=== PATIENT | female | born 1995 | race Caucasian/White ===

== ENCOUNTER → 2019-02-14 | Outpatient (CLI) | payer BC ==
--- NOTE | 2019-02-15 07:17 | US ---
EXAMINATION TYPE: US thyroid st tissue head/neck DATE OF EXAM: 02/14/2019 COMPARISON: NONE CLINICAL HISTORY: E05.90 THYROTOXICOSIS. GLAND SIZE: Right Lobe: 5.3 x 1.1 x 1.4 cm Overall Parenchyma: homogenous Left Lobe: 4.5 x 1.3 x 1.5 cm Overall Parenchyma: homogeneous Isthmus Thickness: 0.8 cm NODULES RIGHT: # of nodules measured on right: 0 LEFT: # of nodules measured on left: 0 ISTHMUS: # of nodules measured in the isthmus: 0 Bilateral neck scanned, no evidence of lymphadenopathy. Right thyroid lobe enlarged IMPRESSION: Mildly enlarged thyroid gland without discrete nodule.
== END | disposition home or self-care (01) ==
LOC: RADUSWWP 15:34
PROVIDERS: ATTEND Family Medicine
DX: E04.9 Nontoxic goiter, unspecified (principal); E05.90 Thyrotoxicosis, unspecified without thyrotoxic crisis or storm
CPT/HCPCS: 76536

== ENCOUNTER → 2019-05-19 | Outpatient (CLI) | payer BC ==
--- NOTE | 2019-05-19 15:08 | CT ---
EXAMINATION TYPE: CT sinus wo con DATE OF EXAM: 05/19/2019 COMPARISON: NONE HISTORY: Chronic sinusitis CT DLP: 603 mGycm. Automated Exposure Control for Dose Reduction was Utilized. TECHNIQUE: CT scan of the sinuses is performed without contrast, axial images are obtained, coronal r eformatted images are also reviewed. FINDINGS: There is mucoperiosteal thickening of the left maxillary sinus indicative of chronic paranasal sinus disease. Trace mucosal thickening is also seen circumferentially within the inferior right maxillary sinus. Antrostomy defects are seen from prior surgical augmentation of the ostiomeatal complexes. The re is left middle and inferior nasal turbinate mucosal hypertrophy. The nasal septum remains midline. Moderate mucosal thickening is also seen within the ethmoid sinuses. Frontal sinuses and frontal rec esses are patent. Visualized mastoid air cells are well aerated. Incidentally noted cerumen is seen w ithin the left external auditory canal and to a lesser degree within the right external auditory teo l. Sphenoid sinuses appear to contain minimal internal debris. The left ostiomeatal complex is occluded although surgically augmented. Bridging mucosal thickening i s seen on the left. Right is patent. No Ruth Ann cells or itzel bullosa are seen. Nasal septum is over all midline. Maxillary spine and nasal septum as well as the nasal bone appear intact. Dental filling s creates spray artifact and partially limiting evaluation. There is limited evaluation of the intrac ranial structures given technique. IMPRESSION: 1. Severe left inferior nasal turbinate mucosal hypertrophy. 2. Occlusion of the left ostiomeatal complex despite augmentation as a coastal thickening bridges the surgical antrostomy defect. 3. Mucoperiosteal thickening indicative of chronic sinusitis in the left maxillary sinus. Overall mil d degree of paranasal sinus disease in the maxillary and ethmoid sinuses. Trace internal debris in th e sphenoid sinuses.
== END | disposition home or self-care (01) ==
LOC: RADCTMAIN 07:27
PROVIDERS: ATTEND Otolaryngology
DX: J32.0 Chronic maxillary sinusitis (principal)
CPT/HCPCS: 70486

== ENCOUNTER 2019-08-13 00:13 | Emergency (ER) | payer BC ==
[2019-08-13 00:21] VITALS: RESP 18
--- NOTE | 2019-08-13 01:27 | CT ---
EXAMINATION TYPE: CT brain ingrid wo con DATE OF EXAM: 08/13/2019 COMPARISON: None HISTORY: fall CT DLP: 1405.8 mGycm Automated exposure control for dose reduction was used. Multiple axial sections were obtained of the brain without contrast. Multiple axial sections were obt ained from the skull base to T1 vertebra without contrast. FINDINGS: Ventricles and sulci appear normal. There is no mass effect nor midline shift. There is no sign of in tracranial hemorrhage. There is moderate mucosal thickening in previous surgery noted at the maxillar y and ethmoid sinuses. Calvarium is intact. There is straightening of the cervical spine. Disc spaces are normal. Posterior elements are intact. Facet joints are intact. Skull base is intact. There is no evidence of cervical spine fracture. IMPRESSION: Negative CT scan of the brain. Sinusitis. Straightening of the cervical spine could be positional. No fracture. Normal disc spaces.
--- NOTE | 2019-08-13 01:33 | XR ---
EXAMINATION TYPE: XR knee 4V RT DATE OF EXAM: 08/13/2019 COMPARISON: NONE HISTORY: Knee pain TECHNIQUE: 4 views FINDINGS: I see no fracture nor dislocation. Joint spaces are normal. There is no sign of joint effus ion. IMPRESSION: Negative right knee exam.
--- NOTE | 2019-08-13 01:46 | ED ---
General Adult HPI - General Source: family, RN notes reviewed, old records reviewed Mode of arrival: wheelchair Limitations: no limitations <Antonio Holland - Last Filed: 08/13/19 01:43> <Rebecca Heck - Last Filed: 08/14/19 23:11> - General Chief complaint: Fall Stated complaint: etoh/fall-hit head Time Seen by Provider: 08/13/19 00:25 - History of Present Illness Initial comments: 24-year-old female patient for vaccinated no pertinent past history presents to ED for chief complaint of fall with EtOH. Patient was reportedly drinking alcohol with friends and family when she was walking into an establishment she stumbled, fell forward and hit her right front tooth and then the side of her face on the concrete ground. No loss of consciousness. Patient did break her to and had an episode of nausea and vomiting shortly after. Mother reports that while patient was in the car she was saying things that did not make sense. Patient also slept for portion of the drive to the hospital. Upon arrival to Hospital mother reports the patient seems to be acting at baseline. Patient complains of pain and right knee. Denies any chance of being . Denies any other complaints. Systemic: Pt denies fatigue, fever/chills, rash. Pt denies weakness, night sweats, weight loss. Neuro: Pt denies headache, visual disturbances, syncope or pre-syncope. HEENT: Pt denies ocular discharge or irritation, otalgia, rhinorrhea, pharyngitis or notable lymphadenopathy. Cardiopulmonary: Pt denies chest pain, SOB, heart palpitations, dyspnea on exertion. Abdominal/GI: Pt denies abdominal pain, n/v/d. : Pt denies dysuria, burning w/ urination, frequency/urgency. Denies new onset urinary or bowel incontinence. MSK: Pt denies myalgia, loss of strength or function in extremities. Neuro: Pt denies new onset weakness, paresthesias. (Antonio Holland) - Related Data Previous Rx's Medication Instructions Recorded Amoxicillin/Potassium Clav 1 each PO Q12HR 7 Days #14 tab 08/13/19 [Augmentin 875-125 Tablet] Allergies Allergy/AdvReac Type Severity Reaction Status Date / Time Tetanus Vaccines and Toxoid AdvReac Confusion Verified 08/13/19 00:48 Review of Systems ROS Other: All systems not noted in ROS Statement are negative. <AmaliaTonAntonio J - Last Filed: 08/13/19 01:43> ROS Other: All systems not noted in ROS Statement are negative. <Rebecca Heck - Last Filed: 08/14/19 23:11> ROS Statement: Those systems with pertinent positive or pertinent negative responses have been documented in the HPI. Past Medical History Past Medical History: Asthma History of Any Multi-Drug Resistant Organisms: None Reported Additional Past Surgical History / Comment(s): nasal polyp removal. Past Psychological History: No Psychological Hx Reported Smoking Status: Never smoker Past Alcohol Use History: Occasional Past Drug Use History: Marijuana <Antonio Holland - Last Filed: 08/13/19 01:43> General Exam Limitations: no limitations <Antonio Holland - Last Filed: 08/13/19 01:43> - General Exam Comments Initial Comments: Constitutional: NAD, AOX3, Pt has pleasant affect. HEENT: NC/AT, trachea midline, neck supple, no lymphadenopathy. Posterior pharynx non erythematous, without exudates. External ears appear normal, without discharge. Mucous membranes moist. Eyes PERRLA, EOM intact. There is no scleral icterus. No pallor noted. Broken right front tooth noted. No other dental injury noted. Cardiopulmonary: RRR, no murmurs, rubs or gallops, no JVD noted. Lungs CTAB in anterior and posterior gamboa. No peripheral edema. Abdominal exam: Abdomen soft and non-distended. Abdomen non-tender to palpation in all 4 quadrants. Bowel sounds active in LLQ. No hepatosplenomegaly. No ecchymosis Neuro: CN II-XII intact. No nuchal rigidity. No raccon eyes, no traore sign, no hemotympanum. No cervical spinal tenderness. MSK: Abrasion noted to anterior aspect of right knee, full active range of motion. Small hematoma noted right frontal lobe. No posterior calf tenderness bilaterally, homans sign negative bilaterally. Posterior tibialis and radial pulse +2 bilaterally. Sensation intact in upper and lower extremities. Full active ROM in upper and lower extremities, 5/5 stregnth. (Antonio Holland) Course Vital Signs 08/13/19 08/13/19 00:16 02:09 Temperature 96.9 F L 98 F Pulse Rate 101 H 107 H Respiratory 18 18 Rate Blood Pressure 121/73 125/64 O2 Sat by Pulse 99 96 Oximetry Medical Decision Making <Antonio Holland - Last Filed: 08/13/19 01:43> <Rebecca Heck - Last Filed: 08/14/19 23:11> - Medical Decision Making 24 old female patient presents to ED for chief complaint of fall while drinking alcohol. Patient vital signs are stable, afebrile. Physical exam displayed small hematoma right frontal lobe, abrasion right knee, broken right front tooth. Patient allegedly exam is within normal limits. Repeat neurologic exam also within normal limits. Mom has other fragment of tooth. CT brain and C-spi ne displayed sinusitis, no other acute intracranial process. Plain film knee is negative. Patient declined tetanus updated. Patient will be discharged with Augmentin, will follow with dentist. Mother and father will watch over patient denied report they have safe place. Return precautions discussed. Case discussed with Dr. Ness. (Antonio Holland) Dictation sent to incorrect attending provider. (Rebecca Heck) - Lab Data Lab Results 08/13/19 Range/Units 00:34 Urine HCG, Qual Not Detected (Not Detectd) Disposition Is patient prescribed a controlled substance at d/c from ED?: No <Antonio Holland - Last Filed: 08/13/19 01:43> <Rebecca Heck - Last Filed: 08/14/19 23:11> Clinical Impression: Fall, Broken tooth, Sinusitis Disposition: HOME SELF-CARE Condition: Stable Instructions (If sedation given, give patient instructions): Sinusitis (ED), Acute Dental Trauma (ED), Fall Prevention (ED) Additional Instructions: Follow-up with primary care provider and dentist tomorrow. Take antibiotics as directed. Return to ER if condition worsens. Prescriptions: Amoxicillin/Potassium Clav [Augmentin 875-125 Tablet] 1 each PO Q12HR 7 Days #14 tab Referrals: Fortino Adame MD [Primary Care Provider] - 1-2 days Princess Uriarte DDS [STAFF PHYSICIAN] - 1-2 days Rodrigo Suarez DDS [STAFF PHYSICIAN] - 1-2 days Maria G Kearney DDS [STAFF PHYSICIAN] - 1-2 days
[2019-08-13 02:10] VITALS: BP 125/64; PULSE 107; TEMP 98
== END 2019-08-13 02:10 | disposition home or self-care (01) ==
LOC: EC 00:13
DX: S02.5XXA Fracture of tooth (traumatic), initial encounter for closed fracture (principal); J32.9 Chronic sinusitis, unspecified; S00.83XA Contusion of other part of head, initial encounter; S80.211A Abrasion, right knee, initial encounter; Z88.7 Allergy status to serum and vaccine; Z53.20 Procedure and treatment not carried out because of patient's decision for unspecified reasons; W01.0XXA Fall on same level from slipping, tripping and stumbling without subsequent striking against object, initial encounter; Y93.01 Activity, walking, marching and hiking; Y92.89 Other specified places as the place of occurrence of the external cause
CPT/HCPCS: 70450; 72125; 81025; 99284

== ENCOUNTER → 2022-01-13 | Outpatient (CLI) | payer OTHER ==
[2022-01-14 11:16] LABS: Aspergillus fumagatus IgE <0.10 kU/L; Birch IgE <0.10 kU/L; Cat Epith & Dander IgE 4.56 kU/L; Cladosporian herbarum IgE <0.10 kU/L; Dog Dander IgE 0.76 kU/L; Elm IgE <0.10 kU/L; Maple (Box Elder) IgE <0.10 kU/L; Oak IgE <0.10 kU/L; Ragweed,Common IgE <0.10 kU/L
[2022-01-14 12:09] LABS: Bermuda Grass IgE <0.10 kU/L (<0.10); Meadow Fescue IgE <0.10 kU/L (<0.10); Meadow Fescue IgE Class CLASS 0; Meadow Grs (KY blue) IgE <0.10 kU/L (<0.10); Meadow Grs (KY blue) IgE Class CLASS 0
[2022-01-14 12:10] LABS: Alt. alternata IgE Class CLASS 0; Alternaria alternata IgE <0.10 kU/L (<0.10); Cottonwood IgE <0.10 kU/L (<0.10); Penicillium notatum IgE Class CLASS 0; Sycamore(Mpl.Lf) IgE <0.10 kU/L (<0.10); Sycamore(Mpl.Lf) IgE Class CLASS 0; Timothy Grass IgE <0.10 kU/L (<0.10); Timothy Grass IgE Class CLASS 0; Willow Tree IgE <0.10 kU/L (<0.10); Willow Tree IgE Class CLASS 0
[2022-01-14 12:11] LABS: Beech IgE <0.10 kU/L (<0.10); Beech IgE Class CLASS 0; English Plantain IgE Class CLASS 0; Goldenrod IgE <0.10 kU/L (<0.10); Goldenrod IgE Class CLASS 0; Lamb's Quarter IgE <0.10 kU/L (<0.10); Lamb's Quarter IgE Class CLASS 0; Ragweed, Giant IgE <0.10 kU/L (<0.10); Ragweed, Giant IgE Class CLASS 0; Sheep Sorrel IgE <0.10 kU/L (<0.10); Sheep Sorrel IgE Class CLASS 0
== END | disposition home or self-care (01) ==
LOC: LABWHC1 10:17
PROVIDERS: ATTEND Internal Medicine
DX: J30.9 Allergic rhinitis, unspecified (principal)
CPT/HCPCS: 36415; 86003

== ENCOUNTER → 2022-06-25 | Outpatient (CLI) | payer OTHER ==
[2022-06-25 18:21] LABS: Basophils # (A) 0.01 X 10*3/uL (0.00-0.10); Basophils % (A) 0.2 %; Eosinophils # (A) 0.52 X 10*3/uL (0.04-0.35); Eosinophils % (A) 8.6 %; HCT 36.9 % (37.2-46.3); HGB 12.1 g/dL (12.0-15.0); Immature Grans, Automated 0.2 %; Lymphocytes # (A) 2.89 X 10*3/uL (0.90-5.00); Lymphocytes % (A) 47.8 %; MCH 26.3 pg (27.0-32.0); MCHC 32.8 g/dL (32.0-37.0); MCV 80.2 fL (80.0-97.0); Monocytes # (A) 0.34 X 10*3/uL (0.20-1.00); Monocytes % (A) 5.6 %; NRBC Per 100 WBC 0 /100 WBCS (0.0-0.0); Neutrophils # (A) 2.27 X 10*3/uL (1.80-7.70); Neutrophils % (A) 37.6 %; Platelet Count 271 X 10*3/uL (140-440); RDW 12.6 % (11.5-14.5); WBC 6.04 X 10*3/uL (4.50-10.00)
[2022-06-25 18:32] LABS: Erythrocyte Sedimentation Rate 16 mm/Hr (0-20)
[2022-06-25 18:55] LABS: ALT 36 U/L (8-44); AST 25 U/L (13-35); African American GFR (CKD) 154.6 (60.0-200.0); Alkaline Phosphatase 133 U/L (41-126); BUN/Creat Ratio 22.45 Ratio (12.00-20.00); Blood Urea Nitrogen 10.8 mg/dL (9.0-27.0); Calcium 9.4 mg/dL (8.7-10.3); Carbon Dioxide 23.8 mmol/L (20.0-27.5); Chloride 104 mmol/L (96-109); Globulin 2.2 g/dL (1.6-3.3); Glucose 99 mg/dL (70-110); Non-African American GFR(CKD) 133.4 (60.0-200.0); Potassium 3.9 mmol/L (3.5-5.5); Sodium 138 mmol/L (135-145); Total Protein 6.2 g/dL (6.2-8.2)
== END | disposition home or self-care (01) ==
LOC: LABWHC1 12:00
PROVIDERS: ATTEND Internal Medicine
DX: T78.3XXA Angioneurotic edema, initial encounter (principal)
CPT/HCPCS: 36415; 80053; 84443; 85025; 85652; 86038; 86140; 86160; 86161; 86332

== ENCOUNTER → 2023-12-10 | Outpatient (CLI) | payer BC ==
--- NOTE | 2023-12-10 10:40 | FL ---
EXAMINATION TYPE: FL UGI air w small bowel DATE OF EXAM: 12/10/2023 COMPARISON: NONE HISTORY: 28-year-old female are 1 0.9, unspecified abdominal pain. History of indigestion, heartburn, occasional sharp pains, and diarrhea. TECHNIQUE: A double contrast UGI study is performed with small bowel follow through. A total of 3 m inutes for seconds of fluoroscopic time was utilized during procedure and 75 images obtained. Total dose area product (DAP) in uGy*m?, mGy*cm? (or similar): 275. FINDINGS: The esophagus shows normal course, caliber, and motility. No abnormal filling defect or mucosal lesio n is identified. There is a tiny sliding hiatal hernia demonstrated on some of the images. We were unable to elicit any gastroesophageal reflux during the course of the exam. The stomach shows normal distensibility, peristalsis, and mucosal folds. No evidence of any mass or ulcer disease. The duodenal bulb and sweep are unremarkable. The small bowel study shows normal transit to the colon in less than 90 minutes. There is normal mucosal fold pattern throughout the small bowel. There is no evidence of any strictu re or filling defect noted. The terminal ileum is unremarkable. IMPRESSION: 1. Tiny sliding hiatal hernia. This may contribute to gastroesophageal reflux disease, though, none w as visualized during the course of the exam. Clinically correlate. 2. Otherwise, unremarkable upper GI examination and small bowel follow-through. Small bowel transit t anderson of 90 minutes.
== END | disposition home or self-care (01) ==
LOC: RADFLMAIN 07:15
PROVIDERS: ATTEND Internal Medicine Gastroenterology
DX: R10.9 Unspecified abdominal pain (principal); R19.4 Change in bowel habit
CPT/HCPCS: 74240; 74248; 85652; 86140

== ENCOUNTER → 2024-01-20 | Outpatient (CLI) | payer BC ==
--- NOTE | 2024-01-20 13:01 | XR ---
EXAMINATION TYPE: XR abdomen 1V, XR pelvis AP view DATE OF EXAM: 01/20/2024 Comparison: None Clinical History: 28-year-old female constipation for 2 weeks, hiatal hernia found on recent upper GI , R10.9 unspecified abdominal pain Findings: Abdomen: Lung bases are clear. Supine imaging limited for assessment of free air. No dilated small bowel. Mild overall stool burden with air and stool extending distally to the rectum. No suspicious calcificatio ns seen. Pelvis: SI joints appear symmetric and intact as does the pubic symphysis and both hips. No acute fracture, s ubluxation, dislocation. Impression (abdomen and pelvis): 1. Nonobstructive bowel gas pattern. Mild overall stool burden. 2. No other specific abnormality seen.
== END | disposition home or self-care (01) ==
LOC: RADXRMAIN 09:07
PROVIDERS: ATTEND Internal Medicine Gastroenterology
DX: R10.9 Unspecified abdominal pain (principal)
CPT/HCPCS: 72170; 74018

== ENCOUNTER 2024-02-01 22:56 | Emergency (ER) | payer BC ==
[2024-02-01] MEDS: ONDANSETRON 4 MG/2 ML VIAL IVP STA (23:47)
[2024-02-01] MEDS: FAMOTIDINE 20 MG/2 ML VIAL IV STA (23:50)
[2024-02-01] MEDS: methylPREDNISolone SOD SUCCI 125 MG/2 ML VIAL IV STA (23:52)
[2024-02-01] MEDS: SODIUM CHLORIDE 0.9% 1,000 ML IV STA (23:54)
[2024-02-02 00:43] LABS: Carbon Dioxide 18 mmol/L (22-30); Chloride 108 mmol/L (98-107); Glucose 85 mg/dL (74-99); Potassium 3.9 mmol/L (3.5-5.1); Sodium 135 mmol/L (137-145)
[2024-02-02 00:44] LABS: African American GFR (CKD) >90 (>60 ml/min/1.73 sqM); Anion Gap 9 mmol/L; Blood Urea Nitrogen 10 mg/dL (7-17); Calcium 8.6 mg/dL (8.4-10.2); Non-African American GFR(CKD) >90 (>60 ml/min/1.73 sqM)
[2024-02-02 00:48] LABS: Basophils % (A) 0 %; Eosinophils # (A) 0.2 k/uL (0-0.7); Eosinophils % (A) 2 %; HGB 14.1 gm/dL (11.4-16.0); Lymphocytes % (A) 21 %; MCH 29.4 pg (25.0-35.0); MCHC 34.3 g/dL (31.0-37.0); MCV 85.8 fL (80.0-100.0); Mean Platelet Volume 10.1; Monocytes # (A) 0.4 k/uL (0-1.0); Monocytes % (A) 3 %; Neutrophils # (A) 10.3 k/uL (1.3-7.7); Neutrophils % (A) 74 %; Platelet Count 306 k/uL (150-450); RBC 4.78 m/uL (3.80-5.40); RDW 11.9 % (11.5-15.5)
[2024-02-02 00:50] VITALS: RESP 16
--- NOTE | 2024-02-02 01:02 | ED ---
General Adult HPI - General Chief complaint: Abdominal Pain Stated complaint: swelling, hives, abd pain Time Seen by Provider: 02/01/24 23:25 Source: patient, RN notes reviewed, old records reviewed Mode of arrival: ambulatory Limitations: no limitations - History of Present Illness Initial comments: Patient is a 28-year-old female with past medical history of angioedema who presents emergency department with angioedema flare. Has been having abdominal pain, rash, hives, swollen left eyelid for multiple days. This is somewhat chronic for the patient for the last 1+ years. Has not yet received a clear answer as the cause of her angioedema. Has been following up outpatient with director service. Denies any current difficulty breathing or swallowing. Tolerating oral secretions. Presents for reevaluation as the Benadryl she takes at home is not improving. Usually gets IV steroids, in addition to allergy cocktail. Does have an epinephrine pen at home to use as needed but she did not use it. Is seeking reevaluation. Denies any other acute complaints other than some mild epigastric discomfort. Presents for further evaluation at this time. - Related Data Previous Rx's Medication Instructions Recorded Amoxicillin/Potassium Clav 1 each PO Q12HR 7 Days #14 tab 08/13/19 [Augmentin 875-125 Tablet] predniSONE [Deltasone] 20 mg PO DAILY 5 Days #5 tab 02/02/24 Allergies Allergy/AdvReac Type Severity Reaction Status Date / Time Tetanus Vaccines and Toxoid AdvReac Confusion Verified 02/01/24 23:00 Review of Systems ROS Statement: Those systems with pertinent positive or pertinent negative responses have been documented in the HPI. Review of Systems: CONST: Denies fever EYES: Denies blurry vision ENT: Denies nasal congestion C/V: Denies Chest pain RESP: Denies shortness of breath GI: Endorses epigastric discomfort : Denies dysuria SKIN: Endorses hives MSK: Denies joint pain. NEURO: Denies headache ROS Other: All systems not noted in ROS Statement are negative. Past Medical History Past Medical History: Asthma Additional Past Medical History / Comment(s): Graves History of Any Multi-Drug Resistant Organisms: None Reported Additional Past Surgical History / Comment(s): nasal polyp removal. Past Psychological History: No Psychological Hx Reported Smoking Status: Never smoker Past Alcohol Use History: Occasional Past Drug Use History: Marijuana General Exam - General Exam Comments Initial Comments: General: Appears in no acute distress. HEAD: Normal with no signs of head trauma. EYES: PERRLA, EOMI, conjunctiva normal, no discharge. Left eyelid swelling. ENT: Hearing grossly intact, normal oropharynx. Uvula is midline. Nonedematous posterior oropharynx. Tongue is nonedematous. No floor the mouth swelling. No stridor auscultated. Tolerating oral secretions. RESPIRATORY: Clear breath sounds bilaterally. No wheezes, rales, or rhonchi. C/V: Regular rate and rhythm. S1 and S2 auscultated, no edema, peripheral pulses 2+ and intact throughout ABD: Abd is soft, nontender, nondistended no guarding, no rebound tenderness. EXT: Normal range of motion, no obvious deformity SKIN: Various hives on her body. NEURO: Alert and oriented x 4. Limitations: no limitations Course Vital Signs 02/01/24 02/02/24 22:58 00:49 Temperature 98.6 F Pulse Rate 100 84 Respiratory 18 16 Rate Blood Pressure 127/80 112/79 O2 Sat by Pulse 98 98 Oximetry Medical Decision Making - Medical Decision Making Was pt. sent in by a medical professional or institution (, PA, DRAWBRIDGE TENDER, urgent care, hospital, or [facility]...) When possible be specific @ -No Did you speak to anyone other than the patient for history (EMS, parent, family, police, friend...)? What history was obtained from this source @ -No Did you review nursing and triage notes (agree or disagree)? Why? @ -I reviewed and agree with nursing and triage notes Were old charts reviewed (outside hosp., previous admission, EMS record, old EKG, old radiological studies, urgent care reports/EKG's, [facility] records)? Report findings @ -No old charts were reviewed Differential Diagnosis (chest pain, altered mental status, abdominal pain women, abdominal pain men, vaginal bleeding, weakness, fever, dyspnea, syncope, headache, dizziness, GI bleed, back pain, seizure, CVA, palpatations, mental health, musculoskeletal)? @ -Angioedema, allergic reaction, anaphylaxis, electrolyte abnormality. This list is not all inclusive. EKG interpreted by me (3pts min.). @ -None done X-rays interpreted by me (1pt min.). @ -None done CT interpreted by me (1pt min.). @ -None done U/S interpreted by me (1pt. min.). @ -None done What testing was considered but not performed or refused? (CT, X-rays, U/S, labs )? Why? @ -None What meds were considered but not given or refused? Why? @ -Considered administering Benadryl however patient just took oral Benadryl prior to arrival. Did you discuss the management of the patient with other professionals (professionals i.e. , PA, DRAWBRIDGE TENDER, lab, RT, psych nurse, social media manager, crotch breaker, teacher, soil science technical officer, bilingual patient support caseworker)? Give summary @ -No Was smoking cessation discussed for >3mins.? @ -No Was critical care preformed (if so, how long)? @ -No Were there social determinants of health that impacted care today? How? (Homelessness, low income, unemployed, alcoholism, drug addiction, transportation, low edu. Level, literacy, decrease access to med. care, intermediate, rehab)? @ -No Was there de-escalation of care discussed even if they declined (Discuss DNR or withdrawal of care, Hospice)? DNR status @ -No What co-morbidities impacted this encounter? (DM, HTN, Smoking, COPD, CAD, Cancer, CVA, ARF, Chemo, Hep., AIDS, mental health diagnosis, sleep apnea, morbi d obesity)? @ -Angioedema Was patient admitted / discharged? Hospital course, mention meds given and route, prescriptions, significant lab abnormalities, going to OR and other pertinent info. @ -Based on patient's presentation and physical exam, presents emergency department for reevaluation for her chronic ankle edema. Hives were worse this evening. No respiratory compromise. Airway is clear. She is tolerating oral secretions. No difficulty breathing. Edema of the left eyelid as well as some abdominal discomfort and skin hives. This is somewhat chronic for the patient. She has been taking Benadryl and Pepcid at home with some mild relief. Has been following up with an director service. I did discuss at length that perhaps the patient should attempt to follow-up with drafter heating and ventilating she does have a history of Graves' disease on top of it. She was in agreement this plan. She will re ceive Benadryl but we will complete the allergy cocktail including Solu-Medrol and Pepcid. She will receive 1 L fluid bolus. Will obtain basic labs. She was in agreement this plan. Vital signs within acceptable limits. Patient's laboratory studies remarkable for mild leukocytosis 14 likely seco ndary to recent IV steroid administration. No other acute findings. On reevaluation, patient is tolerating oral intake. Airway still patent and no compromise. I did discuss with her that I believe is safer to be discharged home as symptoms have been ongoing for multiple days with no significant change. She is in agreement this plan. She will be discharged home with a oral prednisone course in addition to taking her normal Benadryl and famotidine at home. I did offer her an epinephrine pen but she already has 1 at home as well. I recommended follow-up with rheumatology as well as her PCP and director service. She was in agreement this plan. Strict return precautions discussed. I will provide the patient with a prescription for prednisone. I instructed the patient to follow up with their PCP in the next 1-3 days.. I explained that the patient should return to the emergency department if they experience any worsening symptoms. Strict return precautions were discussed with the patient. The patient expressed understanding of these instructions. I answered all questions that the patient had. The patient was discharged home in good condition with their prescriptions and follow up information. Undiagnosed new problem with uncertain prognosis? @ -No Drug Therapy requiring intensive monitoring for toxicity (Heparin, Nitro, Insulin, Cardizem)? @ -No Were any procedures done? @ -No Diagnosis/symptom? @ -Angioedema Acute, or Chronic, or Acute on Chronic? @ -Acute on chronic Uncomplicated (without systemic symptoms) or Complicated (systemic symptoms)? @ -Complicated Side effects of treatment? @ -No Exacerbation, Progression, or Severe Exacerbation? @ -No Poses a threat to life or bodily function? How? (Chest pain, USA, MD, pneumonia, PE, COPD, DKA, ARF, appy, cholecystitis, CVA, Diverticulitis, Homicidal, Suicidal, threat to staff... and all critical care pts) @ -Potentially if it involves her airway which is currently not occurring. - Lab Data Result diagrams: 02/01/24 23:56 02/01/24 23:56 Lab Results 02/01/24 02/01/24 Range/Units 23:56 23:56 WBC 14.0 H (3.8-10.6) k/uL RBC 4.78 (3.80-5.40) m/uL Hgb 14.1 (11.4-16.0) gm/dL Hct 41.0 (34.0-46.0) % MCV 85.8 (80.0-100.0) fL MCH 29.4 (25.0-35.0) pg MCHC 34.3 (31.0-37.0) g/dL RDW 11.9 (11.5-15.5) % Plt Count 306 (150-450) k/uL MPV 10.1 Neutrophils % 74 % Lymphocytes % 21 % Monocytes % 3 % Eosinophils % 2 % Basophils % 0 % Neutrophils # 10.3 H (1.3-7.7) k/uL Lymphocytes # 3.0 (1.0-4.8) k/uL Monocytes # 0.4 (0-1.0) k/uL Eosinophils # 0.2 (0-0.7) k/uL Basophils # 0.0 (0-0.2) k/uL Sodium 135 L (137-145) mmol/L Potassium 3.9 (3.5-5.1) mmol/L Chloride 108 H (98-107) mmol/L Carbon Dioxide 18 L (22-30) mmol/L Anion Gap 9 mmol/L BUN 10 (7-17) mg/dL Creatinine 0.62 (0.52-1.04) mg/dL Est GFR (CKD-EPI)AfAm >90 (>60 ml/min/1.73 sqM) Est GFR (CKD-EPI)NonAf >90 (>60 ml/min/1.73 sqM) Glucose 85 (74-99) mg/dL Calcium 8.6 (8.4-10.2) mg/dL Disposition Clinical Impression: Angioedema Disposition: HOME SELF-CARE Condition: Good Additional Instructions: Attempt controlling GI symptoms with alav-fow-chswsfo antiacid medication such as Maalox or Tums. Attempt controlling pruritic hives with Benadryl ointment. Follow-up with drafter heating and ventilating. Follow-up with director service. Return if worsening symptoms. Prescriptions: predniSONE [Deltasone] 20 mg PO DAILY 5 Days #5 tab Is patient prescribed a controlled substance at d/c from ED?: No Referrals: Carole Low MD [Primary Care Provider] - 1-2 days Time of Disposition: 01:21
[2024-02-02 01:37] VITALS: BP 117/76; PULSE 85; TEMP 98
== END 2024-02-02 01:37 | disposition home or self-care (01) ==
LOC: EC 22:56
DX: T78.3XXA Angioneurotic edema, initial encounter (principal); Z88.7 Allergy status to serum and vaccine
CPT/HCPCS: 80048; 85025; 99284; 96374; 96375 ×2; 96361; J2405; J3490; J2919; 36415; 99285

== ENCOUNTER 2024-03-03 07:44 | Day surgery (SDC) | payer BC ==
[2024-02-29 11:23] VITALS: BMI 39.3
[2024-03-03] MEDS ORDERED: LIDOCAINE 1% (10MG/ML) FOR IV START INTRADERMA PRN (08:02)
[2024-03-03 08:22] VITALS: TEMP 97.4
[2024-03-03] MEDS: IV FLUID CONTINUATION 1,000 ML IV ONE (08:22)
[2024-03-03] MEDS: LACTATED RINGERS 1,000 ML IV SCH (08:22)
[2024-03-03 08:27] LABS: Glucose,Whole Blood 77 mg/dL (70-110)
[2024-03-03] MEDS ORDERED: PROPOFOL 10 MG/ML 20 ML VIAL IV ONE (08:46)
--- NOTE | 2024-03-03 09:03 | P.PCN ---
Date of Procedure: 03/03/24 Procedure(s) Performed: Brief history: Patient is a pleasant 28-year-old female scheduled for an elective upper endoscopy as well as colonoscopy as a part of evaluation ofGERD/intermittent bowel habits. She has been complaining of INTERMITTENT diarrhea and constipation and worsening heartburn. Presently on Pepcid 20 mg daily as needed Procedure performed: Esophagogastroduodenoscopy with biopsy Colonoscopy Preoperative diagnosis: GERD Change in bowel habits Anesthesia: MAC Procedure: After informed consent was obtained from the patient was brought into the endoscopy unit and IV sedation was administered by anesthesia under continuous monitoring. Initially upper endoscopy was done. The Olympus GF 160 video endoscope was inserted inserted into the mouth and esophagus intubated without any difficulty and was gradually advanced into the stomach and duodenum and carefully examined. The bulb and second part of the duodenum appeared normal. biopsies were done from the duodenum to evaluate for celiac disease. The scope was then withdrawn into the stomach adequately insufflated with air and upon careful examination the antrum had patchy areas of erythema in the prepyloric area that was biopsied. Mucosa of the body, cardia and fundus appeared normal. The scope was then withdrawn into the esophagus. The GE junction was located at 40 cm to the incisors. It appeared regular with no erythema erosions or ulcerations. Rest of the esophagus appeared normal. Patient tolerated the proc edure well. At this time the patient continued to remain sedation. Initial digital rectal examination was normal. Olympus CF 160 video colonoscope was then inserted into the rectum and gradually advanced to the cecum without any difficulty. Careful examination was performed as the scope was gradually being withdrawn. The prep was excellent. terminal ileum was intubated and 20 cm visualized and appeared normal. The cecum, ascending colon, transverse colon, descending colon, sigmoid colon and rectum appeared normal. Retroflexion was performed in the rectum and no lesions were noted. Patient tolerated the procedure well. Impression: 1. Upper endoscopy revealed mild gastritisbut no evidence of esophagitis or peptic ulcer disease 2. Colonoscopy was normal limits with no evidence of colorectal neoplasia Recommendations: Findings of this examination were discussed with the patient as well as her family. She was advised to follow with the biopsy results.continue with Pepcid 20 twice daily as needed and follow antireflux measures.
[2024-03-03 09:09] VITALS: RESP 16
[2024-03-03 09:35] VITALS: BP 133/73; PULSE 45
== END 2024-03-03 09:40 | disposition home or self-care (01) ==
LOC: ORWHC2ENDO 07:44
PROVIDERS: ATTEND Internal Medicine Gastroenterology
DX: K29.50 Unspecified chronic gastritis without bleeding (principal); R19.4 Change in bowel habit; D72.820 Lymphocytosis (symptomatic); K21.9 Gastro-esophageal reflux disease without esophagitis; J45.909 Unspecified asthma, uncomplicated; E07.9 Disorder of thyroid, unspecified; F17.200 Nicotine dependence, unspecified, uncomplicated; Z79.899 Other long term (current) drug therapy; Z88.7 Allergy status to serum and vaccine
CPT/HCPCS: 81025; 88305; 45378; 43239; J2704